=== PATIENT | male | born 1955 | race Caucasian/White ===

== ENCOUNTER 2021-12-12 19:31 | Emergency (ER) | payer MEDICARE, OTHER ==
[~2021-12-12] VITALS: Ht 177.8 cm; Wt 88.5 kg
[~2021-12-12 19:31] MED LIST: ASMANEX220 MCG; BACTRIM DS 8001 TA1 PO; PREDNISONE20 MG PO; PROVENTIL0.09 MG/AC IH; SINGULAIR10 MG PO; [UNRECOGNIZED DRUG - OTHER]
== END 2021-12-12 20:20 | disposition left against medical advice (07) ==
LOC: ED 19:31
DX: R10.9 Unspecified abdominal pain (principal); Z53.21 Procedure and treatment not carried out due to patient leaving prior to being seen by health care provider